=== PATIENT | male | born 1990 | race Caucasian/White ===

== ENCOUNTER 2018-04-29 13:48 | Outpatient (REF) | payer MEDICAID, SELFPAY ==
[2018-04-29 20:43] LABS: Anion Gap 12.1 mmol/L (3-11); BUN 19 mg/dL (7-18); CO2 24.9 mmol/L (21.0-32.0); CREATININE 0.99 mg/dL (0.70-1.30); Calcium 8.8 mg/dL (8.5-10.1); Chloride 105 mmol/L (98-107); Cholesterol 144 mg/dL (50-200); Glucose 86 mg/dL (70-100); HDL Cholesterol 34 mg/dL (40-60); LDL CHOLESTEROL 96 mg/dL (<100); Sodium 142 mmol/L (136-145); Triglyceride 109 mg/dL (30-150)
== END 2018-04-29 14:08 ==
LOC: NCHCN 13:48
PROVIDERS: PCP Specialist/Technologist Athletic Trainer; Visit Provider Specialist/Technologist Athletic Trainer
DX: Z00.00 Encounter for general adult medical examination without abnormal findings (principal); Z13.220 Encounter for screening for lipoid disorders; Z13.228 Encounter for screening for other metabolic disorders
CPT/HCPCS: 80048; 80061; 83721

== ENCOUNTER 2019-05-17 09:45 | Emergency (ER) | payer MEDICAID, SELFPAY ==
[2019-05-17 09:48] VITALS: BP 126/65; PULSE 73; RESP 16; TEMP 37; O2SAT 99
--- NOTE | 2019-05-17 10:03 | ED.GENADUL_ITS ---
Discharge Plan Disposition Patient Disposition: HOME Discharge Details Chief Complaint: DentalOral Clinical Impression: Dental infection Primary Care Provider: Ora Arce V ED Provider: Corbin Sandoval Home Meds and New Rx's Prescriptions: New amoxicillin-pot clavulanate [Augmentin] 875-125 mg tablet 1 tab PO BID Qty: 14 RF: 0 Discharge Instructions Instructions: Dental Abscess (ED) Additional Instructions: Please follow-up with your dentist. Call today to schedule follow-up. Please take full course of antibiotic as prescribed. Please take ibuprofen over the counter. Take 600mg by mouth every 6 hours as needed for pain. Please take acetaminophen (tylenol) - 650mg every 6 hours by mouth as needed for pain. Please contact your primary care physician to arrange follow-up. Return to the ER for any worsening or new concerning symptoms. Stand Alone Forms: Work Release Referrals: Ora Arce MD [Primary Care Provider] - Medical Decision Making 29-year-old male here with chronic molar fracture now with dental infection. No palpable fluctuance. No sublingual swelling. Plan will be to initiate treatment with Augmentin and have the patient follow-up with dentist. Usual and customary discharge instructions were provided. HPI General Mode of arrival: ambulatory . Date/Time Provider Initiated Documentation: 05/17/19 09:52 . Limitations to Documentation: no limitations . Information obtained by: patient . HPI Narrative: 29-year-old male here with chief complaint of dental pain. Patient notes chronic x2 years dental fracture right lower molar tooth #32. Since yesterday he has had increasing pain in this tooth. Pain is moderate to severe. Patient has associated swelling of his right lower jaw. No associated fever. Related Data Home Medications Medication Instructions Recorded Confirmed amoxicillin-pot clavulanate 1 tab PO BID #14 tab 05/17/19 [Augmentin] Previous Rx's Medication Instructions Recorded amoxicillin-pot clavulanate 1 tab PO BID #14 tab 05/17/19 [Augmentin] Allergies Allergy/AdvReac Type Severity Reaction Status Date / Time No Known Allergies Allergy Unverified 05/17/19 10:12 General Stated Complaint: DentalOral TG: 4 Review of Systems Constitutional Constitutional: Denies fever(s) ENT Ears, Nose, Mouth, and Throat: Reports as per HPI and Denies dizziness Cardiovascular Cardiovascular: Denies dyspnea Respiratory Respiratory: Denies dyspnea Integumentary/Breasts Skin/Breast: Denies rash Neurologic Neurologic: Denies dizziness [facility] Social History Smoking/Tobacco Use Status: Never Alcohol Intake: never Drug use: Never Substance use type: does not use Do you feel safe at home: Yes Do you feel safe in your relationship?: Yes Exam Const General: cooperative and no acute distress HENMT Head: normocephalic and atraumatic General nose exam: external nose normal Face and sinus: no fluctuance and no sinus tenderness Mouth: moist mucous membranes Teeth and gingiva: other (Right lower molar tooth #32 with chronic fracture, no adjacent fluctuance) Throat: posterior oropharynx abnormal erythema (Mild); no exudates Eyes Conjunctivae: normal conjunctivae EOM: EOM intact bilaterally Neck Neck: trachea midline and supple Lymphatic: lymphadenopathy (Mild right anterior cervical lymphadenopathy) Resp Auscultation: clear to auscultation bilaterally, no rales, no rhonchi and no wheezes Cardio Jugular venous pressure: no JVD Rate: regular rate and not tachycardic Rhythm: regular rhythm Skin General skin exam: no rashes or lesions noted Neuro General: alert, awake and tone normal Course Vital Signs Vital signs: Vital Signs Temperature 37.0 C 05/17/19 09:48 Pulse 73 05/17/19 09:48 Respiratory Rate 16 05/17/19 09:48 Blood Pressure 126/65 05/17/19 09:48 Pulse Oximetry 99 05/17/19 09:48 Temperature 37.0 C 05/17/19 09:48 Temperature Source Tympanic 05/17/19 09:48 Pulse 73 05/17/19 09:48 Respiratory Rate 16 05/17/19 09:48 Blood Pressure 126/65 05/17/19 09:48 Blood Pressure Position Supine 05/17/19 09:48 Pulse Oximetry 99 05/17/19 09:48 Oxygen Delivery Method Room Air 05/17/19 09:48 Oxygen Flow Rate 0 05/17/19 09:48 Pain Level 10 05/17/19 09:48
[2019-05-17] MEDS: Amoxicillin 875/Clav. 125 TAB PO (10:05)
== END 2019-05-17 10:11 | disposition home or self-care (01) ==
LOC: ER 11:07
PROVIDERS: Emergency Provider Student in an Organized Health Care Education/Training Program; PCP Family Medicine
DX: K04.7 Periapical abscess without sinus (principal)
CPT/HCPCS: 99283

== ENCOUNTER 2020-07-02 15:40 | Outpatient (REF) | payer MEDICAID, SELFPAY ==
[2020-07-04 14:34] LABS: HSV 1 DNA Result Negative (Negative); HSV 2 DNA Result Positive (Negative)
== END 2020-07-02 16:00 ==
LOC: NCHCN 15:40
PROVIDERS: PCP Family Medicine; Visit Provider Nurse Practitioner Family
DX: N50.9 Disorder of male genital organs, unspecified (principal); Z11.59 Encounter for screening for other viral diseases
CPT/HCPCS: 87529

== ENCOUNTER 2020-08-15 19:11 | Outpatient (REF) | payer MEDICAID, SELFPAY ==
[2020-08-16 14:40] LABS: COVID-19 RT-PCR UVMMC Result Negative (Negative)
== END 2020-08-15 19:31 ==
LOC: NCHCN 19:11
PROVIDERS: PCP Family Medicine; Visit Provider Family Medicine
DX: Z20.828 Contact with and (suspected) exposure to other viral communicable diseases (principal)
CPT/HCPCS: U0003

== ENCOUNTER 2021-11-29 00:59 | Outpatient (CLI) | payer MEDICAID, SELFPAY ==
[2021-11-29] MEDS: Albuterol HFA 18 GM 200 PUFF INH IH (15:59)
[2021-11-29] MEDS: Inhaler, Assist Device 1 EACH MC (15:59)
== END 2021-11-29 01:00 | disposition home or self-care (01) ==
LOC: RT 00:59
PROVIDERS: PCP Family Medicine; Visit Provider Nurse Practitioner Family
DX: R06.00 Dyspnea, unspecified (principal)
CPT/HCPCS: 94060; 94726; 94729

== ENCOUNTER 2022-03-25 16:35 | Outpatient (REF) | payer MEDICAID, SELFPAY ==
[2022-03-25 17:28] LABS: Anion Gap 7.8 mmol/L (3-11); BUN 17 mg/dL (7-18); CO2 28.2 mmol/L (21.0-32.0); CREATININE 1.3 mg/dL (0.70-1.30); Calcium 8.9 mg/dL (8.5-10.1); Chloride 106 mmol/L (98-107); Glucose 118 mg/dL (74-106); Potassium 3.9 mmol/L (3.5-5.1); Sodium 142 mmol/L (136-145)
== END 2022-03-25 16:36 | disposition home or self-care (01) ==
LOC: NCHCN 16:35
PROVIDERS: PCP Family Medicine; Visit Provider Nurse Practitioner Family
DX: R94.2 Abnormal results of pulmonary function studies (principal); Z00.00 Encounter for general adult medical examination without abnormal findings; R06.09 Other forms of dyspnea
CPT/HCPCS: 80048

== ENCOUNTER → 2022-04-03 00:51 | Outpatient (CLI) | payer MEDICAID, SELFPAY ==
--- NOTE | 2022-04-03 | DI.CT_ITS ---
Exam(s) CT NECK CHEST W EXAM: CT NECK CHEST W CLINICAL HISTORY: ABNL PFTS,R94.2,UPPER AIRWAY OBSTRUCTION TECHNIQUE: CT examination of the chest was performed followed by CT of the cervical region with intr avenous infusion of 100 cc of Omnipaque 350 as a divided dose period. COMPARISON: No exams were available for comparison FINDINGS: The lungs are clear. There is no evidence of pleural effusion. There is no evidence of pulmonary embolic disease. There is unremarkable appearance of the thoracic aorta and major branches with no evidence of aneurysm or dissection. There is no mediastinal or hilar adenopathy. Tracheobronchial tree appears intact. No axillary or supraclavicular adenopathy. Visualized portions of the liver, spleen, adrenals, and kidneys are unremarkable. No abnormality seen involving the bony thorax. Tracheolaryngeal structures in the cervical region appear intact. No cervical mass or adenopathy. U nremarkable appearance of thyroid. No vascular abnormality. The salivary glands are unremarkable appearance. Note is made of opacification of the right maxillary antrum with apparent extension into the right na lara cavity consistent with a chronic sinusitis and a possible ostial obstruction. Visualized orbital structures appear intact. Visualized brain is unremarkable. IMPRESSION: Negative CT examination of the chest and neck. Incidental finding of right maxillary sinusitis with question of expansion of the sinus cavity into t he right nasal cavity, presumed chronic sinusitis with probable ostial obstruction. Incidental Findings RADIATION DOSE DELIVERED: 1,675.89mGy.cm Total DLP 1,675.89mGy.cm Total DLP !Error CTDIvol DATA REPOSITORY: All CT scans at this facility are submitted to the National Radiology Data Registry (NRDR) Dose Index Registry (DIR) with the [employer] ([employer]). RADIATION OPTIMIZATION: All CT scans at this facility use at least one of these dose optimization te chniques: automated exposure control; mA and/or kV adjustment per patient size (includes targeted exa ms where dose is matched to clinical indication); or iterative reconstruction.
[2022-04-03] MEDS: Omnipaque 350 MG/ML 100 ML BTL IJ (13:36)
== END ==
PROVIDERS: PCP Family Medicine; Visit Provider Nurse Practitioner Family
DX: R94.2 Abnormal results of pulmonary function studies (principal); J32.0 Chronic maxillary sinusitis; J98.8 Other specified respiratory disorders
CPT/HCPCS: 70491; 71260; J3490

== ENCOUNTER 2022-05-11 20:27 | Emergency (ER) | payer MEDICAID, SELFPAY ==
[2022-05-11] VITALS (7 sets, daily range): BP systolic 128–132; BP diastolic 74–85; PULSE 74–84; RESP 17–21; TEMP 36.8; O2SAT 96–100
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
--- NOTE | 2022-05-11 20:45 | RT.EKG_ITS ---
APPROVED REPORT Exam: Resting ECG Reason for Exam: LOC Patient Location: E HR:75 bpm ECG Measurements Heart Rate 75 AXIS IL 149 P 54 QRSd 95 QRS 12 QT 372 T 14 QTc 416 Conclusion Sinus rhythm...normal P axis, V-rate 60- 99. Sinus. Normal axis. No STEMI. I have reviewed and interpreted ECG and agree with software generated interpretation.
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
[2022-05-11] MEDS: ACETAMINOPHEN 1,000 MG/100 ML BTL 400 MG IVPB (21:05)
[2022-05-11] MEDS: Normal Saline 1,000 ML 1000 ML IV (21:07)
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
[2022-05-11 22:03] LABS: Abs Immature Grans 0.37 10^3/uL (0.0-0.06); Absolute Basophil Count 0.06 10^3/uL (0.0-0.2); Absolute Eosinophil Count 0.06 10^3/uL (0.0-0.7); Absolute Monocyte Count 1.15 10^3/uL (0.1-0.8); Basophils % 0.3; Eosinophils % 0.3; HCT 40.4 % (40.0-50.0); HGB 12.7 g/dL (13.5-17.5); Immature Grans % 1.9; Lymphocytes % 10.8; MCH 24.1 pg (27.0-33.0); MCHC 31.4 % (32.0-36.0); MCV 77 fL (80-95); MPV 10.5 fL (8.0-11.0); Monocytes % 5.9; Neutrophils % 80.8; Platelet Count 241 10^3/uL (130-400); RBC 5.27 10^6/uL (4.36-5.78); RDW 13.8 % (11.8-14.1); RDW-SD 37.8 fL; WBC 19.48 10^3/uL (4.4-10.8)
[2022-05-11 22:04] LABS: Absolute Neutrophil Count 15.74 10^3/uL (1.2-6.7)
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
[2022-05-11 22:18] LABS: ALT 20 U/L (16-63); AST 29 U/L (15-37); Albumin 3.8 g/dL (3.4-5.0); Alkaline Phosphatase 100 U/L (46-116); Anion Gap 8.7 mmol/L (3-11); BUN 16 mg/dL (7-18); Bilirubin, Total 0.6 mg/dL (0.2-1.0); CO2 28.3 mmol/L (21.0-32.0); CREATININE 1.5 mg/dL (0.70-1.30); Calcium 9.1 mg/dL (8.5-10.1); Chloride 103 mmol/L (98-107); Estimated GFR 63.04 (mL/min/1.73m2); Glucose 128 mg/dL (74-106); Potassium 3.3 mmol/L (3.5-5.1); Sodium 140 mmol/L (136-145); Total Protein 7.7 g/dL (6.4-8.2)
[2022-05-11] MEDS: Ibuprofen 600 MG TAB PO (23:35)
[2022-05-12 00:07] VITALS: BP 128/74; PULSE 84; RESP 20; TEMP 36.8; O2SAT 97
== END 2022-05-12 00:01 | disposition home or self-care (01) ==
PROVIDERS: Emergency Provider Physician Assistant; PCP Nurse Practitioner Family
DX: S02.32XA Fracture of orbital floor, left side, initial encounter for closed fracture (principal); S01.81XA Laceration without foreign body of other part of head, initial encounter; D72.829 Elevated white blood cell count, unspecified; R55 Syncope and collapse; V86.99XA Unspecified occupant of other special all-terrain or other off-road motor vehicle injured in nontraffic accident, initial encounter; Z87.891 Personal history of nicotine dependence; Z23 Encounter for immunization
CPT/HCPCS: 80053; 90471; 93005; 96360; 99285; 70450; 70486; 71045; 72125; 72170; 85025; 93010; 99284; J0131

== ENCOUNTER 2022-05-15 15:21 | Outpatient (REF) | payer MEDICAID, SELFPAY ==
[2022-05-15 19:43] LABS: Abs Immature Grans 0.07 10^3/uL (0.0-0.06); Absolute Basophil Count 0.05 10^3/uL (0.0-0.2); Absolute Eosinophil Count 0.32 10^3/uL (0.0-0.7); Absolute Lymphocyte Count 1.96 10^3/uL (1.2-3.4); Absolute Neutrophil Count 9.76 10^3/uL (1.2-6.7); Basophils % 0.4; Eosinophils % 2.4; HCT 37.2 % (40.0-50.0); HGB 11.8 g/dL (13.5-17.5); Immature Grans % 0.5; Lymphocytes % 14.9; MCH 24.2 pg (27.0-33.0); MCHC 31.7 % (32.0-36.0); MCV 76 fL (80-95); Monocytes % 7.6; Neutrophils % 74.2; Platelet Count 240 10^3/uL (130-400); RBC 4.87 10^6/uL (4.36-5.78); RDW 13.9 % (11.8-14.1); WBC 13.16 10^3/uL (4.4-10.8)
[2022-05-15 19:58] LABS: C & S Indicated? Yes; RBC >50 HPF (0-2)
== END 2022-05-15 15:22 | disposition home or self-care (01) ==
LOC: NCHCN 15:21
PROVIDERS: PCP Nurse Practitioner Family; Visit Provider Nurse Practitioner Family
DX: S02.842 Fracture of lateral orbital wall, left side (principal); R31.0 Gross hematuria
CPT/HCPCS: 81015; 85025; 87086

== ENCOUNTER 2022-05-30 15:51 | Outpatient (REF) | payer MEDICAID, SELFPAY ==
[2022-05-30 17:04] LABS: Bacteria Negative HPF (Negative); C & S Indicated? No; Casts Negative LPF (Negative); Crystals Negative HPF (Negative); Epithelial Cells Rare HPF (Negative); Mucus Negative (Negative); RBC 0-2 HPF (0-2); WBC 0-2 HPF (0-5)
== END 2022-05-30 15:52 | disposition home or self-care (01) ==
LOC: NCHCN 15:51
PROVIDERS: PCP Nurse Practitioner Family; Visit Provider Nurse Practitioner Family
DX: R31.0 Gross hematuria (principal)
CPT/HCPCS: 81015

== ENCOUNTER 2025-02-02 16:58 | Emergency (ER) | payer MEDICAID, SELFPAY ==
[2025-02-02 17:02] VITALS: BP 121/80; PULSE 95; RESP 16; TEMP 36.6; O2SAT 98
[2025-02-02 17:04] VITALS: BP 121/80; PULSE 95; RESP 16; TEMP 36.6; O2SAT 98
[2025-02-02 17:53] LABS: ESR 8 mm/hr (0-15)
[2025-02-02 17:56] LABS: Abs Immature Grans 0.05 10^3/uL (0.0-0.06); Absolute Basophil Count 0.04 10^3/uL (0.0-0.2); Absolute Eosinophil Count 0.01 10^3/uL (0.0-0.7); Absolute Monocyte Count 0.72 10^3/uL (0.1-0.8); Absolute Neutrophil Count 11.95 10^3/uL (1.2-6.7); Basophils % 0.3 %; Eosinophils % 0.1 %; HCT 45.6 % (40.0-50.0); HGB 14.8 g/dL (13.5-17.5); Immature Grans % 0.4 %; Lymphocytes % 9.9 %; MCH 25.6 pg (27.0-33.0); MCHC 32.5 % (32.0-36.0); MCV 79 fL (80-95); MPV 9.6 fL (8.0-11.0); Monocytes % 5.1 %; Neutrophils % 84.2 %; Platelet Count 218 10^3/uL (130-400); RBC 5.79 10^6/uL (4.36-5.78); RDW 14.1 % (11.8-14.1); RDW-SD 39.7 fL; WBC 14.19 10^3/uL (4.4-10.8)
[2025-02-02 18:15] LABS: ALT 32 U/L (16-63); AST 20 U/L (15-37); Albumin 4.3 g/dL (3.4-5.0); Alkaline Phosphatase 98 U/L (46-116); Anion Gap 10.2 mmol/L (3-11); BUN 15 mg/dL (7-18); Bilirubin, Total 0.8 mg/dL (0.2-1.0); C-Reactive Protein 2.03 mg/dL (<or=0.5); CO2 26.8 mmol/L (21.0-32.0); CREATININE 1.1 mg/dL (0.70-1.30); Calcium 9.2 mg/dL (8.5-10.1); Chloride 102 mmol/L (98-107); Estimated GFR 90.34 (mL/min/1.73m2); Glucose 91 mg/dL (74-106); Potassium 3.8 mmol/L (3.5-5.1); Sodium 139 mmol/L (136-145); Total Protein 8.5 g/dL (6.4-8.2)
[2025-02-02] MEDS: Clindamycin 150 MG CAP, 12 CAPS/BTL 450 MG PO (19:26)
[2025-02-02 19:29] VITALS: BP 158/89; PULSE 89; RESP 18; O2SAT 100
--- NOTE | 2025-02-02 22:55 | ED.GENADUL_ITS ---
Discharge Plan Disposition Patient Disposition: Home Condition: Stable Discharge Details Clinical Impression: Cellulitis Primary Care Provider: Rachana Sweet ED Provider: Amita Prieto Home Meds and New Rx's Prescriptions: New clindamycin HCl [Cleocin HCl] 150 mg capsule 450 mg PO TID Qty: 90 0RF Discharge Instructions Instructions: Cellulitis (Skin Infection), Adult ED Additional Instructions: Take antibiotic as prescribed Elevate your legs is much as possible Take Motrin and Tylenol as needed for pain Recheck in 48 hours Return to spreading redness, fever, worsening pain Referrals: Rachana Sweet [Primary Care Provider, Medicine] Discharge Data Discharge Date/Time-TO BE ENTERED AT DEPARTURE: 02/02/25 19:29 HPI General Date/Time Provider Initiated Documentation: 02/02/25 17:30 . HPI Narrative: 25-year-old male with left shoulder injury after fall at work. No head injury, additional injuries, or pain in hip, abdomen, or back. Related Data Home Medications ?Medication ?Instructions ?Recorded ?Confirmed clindamycin HCl 150 mg capsule 450 mg (3 x 150 mg) PO TID #90 caps 02/02/25 (Cleocin HCl) Previous Rx's ?Medication ?Instructions ?Recorded clindamycin HCl 150 mg capsule 450 mg (3 x 150 mg) PO TID #90 caps 02/02/25 (Cleocin HCl) Allergies Allergy/AdvReac Type Severity Reaction Status Date / Time fish Allergy Mild Anaphylaxis Uncoded 02/02/25 17:05 General Stated Complaint: Cellulitis TG: 3 Exam Narrative Exam Narrative: general Appearance: Alert and oriented. Vital signs: Within normal limits. HEENT: Within normal limits. Respiratory: Within normal limits. Back, Musculoskeletal: Tenderness over left scapula and shoulder. No clavicle tenderness, chest wall tenderness, or visible trauma. Skin: Warm and dry, no rash. Neurological: Neurovascular exam intact. Course Vital Signs Vital signs: Vital Signs Temperature 36.6 C 02/02/25 17:02 Pulse 95 H 02/02/25 17:02 Respiratory Rate 16 02/02/25 17:02 Blood Pressure 121/80 02/02/25 17:02 Pulse Oximetry 98 02/02/25 17:02 Temperature 36.6 C 02/02/25 17:04 Pulse 89 02/02/25 19:29 Respiratory Rate 18 02/02/25 19:29 Blood Pressure 158/89 H 02/02/25 19:29 Pulse Oximetry 100 02/02/25 19:29 Oxygen Delivery Method Room Air 02/02/25 17:04 Oxygen Flow Rate 0 02/02/25 17:04 Pain Level 10 02/02/25 17:04 Lab/Test Results Lab/Test Results: Laboratory Tests Range/Units 02/02/25 17:47 WBC (4.4-10.8) 10^3/uL 14.19 H RBC (4.36-5.78) 10^6/uL 5.79 H Hgb (13.5-17.5) g/dL 14.8 Hct (40.0-50.0) % 45.6 MCV (80-95) fL 79 L MCH (27.0-33.0) pg 25.6 L MCHC (32.0-36.0) % 32.5 RDW (11.8-14.1) % 14.1 Plt Count (130-400) 10^3/uL 218 MPV (8.0-11.0) fL 9.6 Immature Gran % % 0.4 Neutrophils % % 84.2 Lymphocytes % % 9.9 Monocytes % % 5.1 Eosinophils % % 0.1 Basophils % % 0.3 Nucleated RBC % (0.0-0.3) % 0.0 Absolute Neutrophils (1.2-6.7) 10^3/uL 11.95 H Absolute Lymphocytes (1.2-3.4) 10^3/uL 1.40 Absolute Monocytes (0.1-0.8) 10^3/uL 0.72 Absolute Eosinophils (0.0-0.7) 10^3/uL 0.01 Absolute Basophils (0.0-0.2) 10^3/uL 0.04 ESR (0-15) mm/hr 8 Sodium (136-145) mmol/L 139 Potassium (3.5-5.1) mmol/L 3.8 Chloride (98-107) mmol/L 102 Carbon Dioxide (21.0-32.0) mmol/L 26.8 Anion Gap (3-11) mmol/L 10.2 BUN (7-18) mg/dL 15 Creatinine (0.70-1.30) mg/dL 1.1 Est GFR (CKD-EPI 2020) (mL/min/1.73m2) 90.34 Glucose (74-106) mg/dL 91 Calcium (8.5-10.1) mg/dL 9.2 Total Bilirubin (0.2-1.0) mg/dL 0.8 AST (15-37) U/L 20 ALT (16-63) U/L 32 Alkaline Phosphatase (46-116) U/L 98 C-Reactive Protein (<or=0.5) mg/dL 2.03 H Total Protein (6.4-8.2) g/dL 8.5 H Albumin (3.4-5.0) g/dL 4.3 Medical Decision Making X-rays of scapula and shoulder show no acute abnormality. Initial Assessment: 25-year-old male with left shoulder trauma after tripping at work. Denies head injury, hip pain, abdominal pain, or back pain. Alert and oriented. Tenderness over left scapula and shoulder. No clavicle tenderness, chest wall tenderness, or visible trauma. Neurovascular exam intact. ED Course: - X-rays of scapula and shoulder show no acute abnormality. - Motrin and Tylenol PRN for pain. - Declined sling and occupational therapy. - Clearance to return to work in 1 week. - Provided work note. Final Assessment: Left shoulder injury with tenderness over left scapula and shoulder. X-rays show no acute abnormality. Pain management with Motrin and Tylenol. Declined sling and occupational therapy. Clearance to return to work in 1 week. Clinical Impression: - Left shoulder injury Disposition: - Discharge - Follow-Up: Clearance to return to work in 1 week. MDM Components Evaluation: - Number of Differential Diagnoses or Management Options: Left shoulder injury - Amount and Complexity of Data Reviewed: X-rays of scapula and shoulder - Risk of Complication and Morbidity or Mortality: Low risk based on X-ray results and neurovascular exam. PFSH All Active Problems (Updated 02/02/25 @ 18:29 by TRELL Mcbride) Cellulitis (Acute) Chronic right maxillary sinusitis (Acute) Learning disability (Acute) Eczema (Acute) Anxiety (Chronic) Insomnia (Acute) Synovitis (Acute) Other specified behavioral and emotional disorders with onset usually occurring in childhood and adolescence (Acute) Lesion of penis (Acute) Generalized headaches (Acute) Heartburn (Acute) Asthma (Chronic) Back pain (Acute) Fracture of orbital floor, blow-out, left, closed (Acute) Medical History GERD (gastroesophageal reflux disease) Gross hematuria Herpes simplex type II infection Low back pain Surgical History No significant past surgical history Social History Smoking/Tobacco Use Status: Former Tobacco Use tobacco type: cigarettes Quit status: quit date established Second Hand Exposure: No Smoking risk assessment performed?: Yes Alcohol Intake: former Substance use type: does not use
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
== END 2025-02-02 19:29 | disposition home or self-care (01) ==
LOC: ER 18:55
PROVIDERS: Emergency Provider Physician Assistant; PCP Nurse Practitioner Family
DX: L03.116 Cellulitis of left lower limb (principal); L03.115 Cellulitis of right lower limb; L56.8 Other specified acute skin changes due to ultraviolet radiation; X32.XXXA Exposure to sunlight, initial encounter; Z87.891 Personal history of nicotine dependence
CPT/HCPCS: 36415; 80053; 85652; 99283; 85025; 86140